=== PATIENT | male | born 1970 | race African-American/Black ===

== ENCOUNTER 2022-01-01 16:43 | Emergency (ER) | payer SELFPAY ==
--- OUTSIDE RECORDS SUMMARY | 2022-01-01 16:48 | XMS REPORT | Continuity of Care Document ---
:1970 Author Organization [facility] t Address [address] [place] [address] Care Team Providers Name Role Phone Jerry Hogue Primary Care Physician [phone] Miquel Bradshaw Attending Clinician Unavailable Manny Saxena Attending Clinician [phone] Lexy Rojo MD Attending Clinician MANNY HARRIS Attending Clinician Unavailable Unknown, Attending Attending Clinician Unavailable Nurse, Mars Urgent Attending Clinician Unavailable Eliseo Waldron Attending Clinician ELISEO MCDONALD Attending Clinician Unavailable Only, [facility] Test Attending Clinician Unavailable Cata Peña RN Attending Clinician Unavailable ARIEL SILVERMAN Attending Clinician Unavailable Ariel Silverman MD Attending Clinician JERRY ROMAN Attending Clinician Unavailable Jerry Hogue Attending Clinician Nurse, [facility] Attending Clinician Unavailable Luke Jernigan DO Attending Clinician Lab, [facility] Attending Clinician Unavailable Only, Mars Test Attending Clinician Unavailable Doctor Unassigned, [place] Attending Clinician Unavailable Payers Payer Name Policy Type Policy Number Effective Date Expiration Date S ource Problems Condition Condition Condition Status Onset Resolution Last Treating Co mments Source Name Details Category Date Date Treatment Clinician Date Obesity Obesity Disease Active 2016-05 Univers (BMI (BMI 0-16 ity of 30-39.9) 30-39.9) 00:00: [place] 00 [facility] Burn Burn Disease Active 2016-05 Univers 0-16 ity of 00:00: [address] Allergies, Adverse Reactions, Alerts Allergy Allergy Status Severity Reaction(s) Onset Inactive Treating Comm ents Source Name Type Date Date Clinician No Known [facility] 00:00: s 00 No Known DA Active U 2020-05 [facility] Drug 2-07 Allergie 00:00: s 00 No Known DA [facility] Allergie 00:00: s 00 NO KNOWN Drug Active Univers ALLERGIE Class ity of S [facility] Social History Social Habit Start Date Stop Date Quantity Comments Source Exposure to Unable to assess Univers ity of SARS-CoV-2 [facility] (event) [place] Alcohol intake 2021-05-26 2021-05-26 3.43 /d [place] of 00:00:00 00:00:00 [facility] Tobacco use and 2017-02-25 2017-02-25 Never used Universit y of exposure 00:00:00 00:00:00 [facility] Sex [birth year] Universit y of 00:00:00 00:00:00 [facility] Smoking Status Start Date Stop Date Source Former smoker 2017-02-25 00:00:00 2017-02-25 00:00[facility]00 [facility] Medications Ordered Filled Start Stop Current Ordering Indication Dosage Frequency Signature Comments Components Source Medication Medication Date Date Medication? Clinician (SIG) Name Name omeprazole 2021- No [id number] 40mg Take 1 Univers 40 mg 05-26 capsule by ity of capsule 00:00: 05:59 mouth [place] 00 :00 daily for Medical 30 days. Branch omeprazole 2021- No [id number] 40mg Take 1 Univers 40 mg 05-26 capsule by ity of capsule 00:00: 05:59 mouth [place] 00 :00 daily for Medical 30 days. Branch omeprazole 2021- No [id number] 40mg Take 1 Univers 40 mg 05-26 capsule by ity of capsule 00:00: 05:59 mouth [place] 00 :00 daily for Medical 30 days. Branch ondansetron 2021-0 2022- No [id number] 4mg Take 1 Univers (ZOFRAN 05-26 tablet by ity of ODT) 4 mg 00:00: 05:59 mouth [place] disintegrat 00 :00 every 24 Medi allison ing tablet ([facility] ur) hours as needed for Nausea and Vomiting (N/V) for up to 5 days. levoFLOXaci 2020-1 Yes 750mg Take 750 U nivers n 750 mg 2-15 mg by ity of tablet 00:00: mouth 00 daily. Medical Branch levoFLOXaci 2020-05 Yes 750mg Take 750 U nivers n 750 mg 2-15 mg by ity of tablet 00:00: mouth daily. Medical Branch levoFLOXaci 2020-1 Yes 750mg Take 750 U nivers n 750 mg 2-15 mg by ity of tablet 00:00: mouth daily. Medical Branch LISINOPRIL 2020-0 Yes [id number] 10mg TAKE 1 U nivers 10 mg 8-12 TABLET BY ity of tablet 00:00: MOUTH 00 DAILY Medical Branch AMLODIPINE 2020-0 Yes [id number] 10mg TAKE 1 U nivers 10 mg 8-12 TABLET BY ity of tablet 00:00: MOUTH DAILY Medical Branch LISINOPRIL 2020-0 Yes [id number] 10mg TAKE 1 U nivers 10 mg 8-12 TABLET BY ity of tablet 00:00: MOUTH DAILY Medical Branch AMLODIPINE 1-0 Yes [id number] 10mg TAKE 1 U nivers 10 mg 8-12 TABLET BY ity of tablet 00:00: MOUTH 00 DAILY Medical Branch LISINOPRIL 2020-0 Yes [id number] 10mg TAKE 1 U nivers 10 mg 8-12 TABLET BY ity of tablet 00:00: MOUTH 00 DAILY Medical Branch AMLODIPINE 1-0 Yes [id number] 10mg TAKE 1 U nivers 10 mg 8-12 TABLET BY ity of tablet 00:00: MOUTH 00 DAILY Medical Branch LISINOPRIL 1-0 Yes [id number] 10mg TAKE 1 U nivers 10 mg 8-12 TABLET BY ity of tablet 00:00: MOUTH [place] 00 DAILY Medical Branch AMLODIPINE 2021-0 Yes [id number] 10mg TAKE 1 U nivers 10 mg 8-12 TABLET BY ity of tablet 00:00: [facility] DAILY [facility] Branch LISINOPRIL 2021-0 Yes [id number] 10mg TAKE 1 U nivers 10 mg 8-12 TABLET BY ity of tablet 00:00: DAILY Medical Branch AMLODIPINE 2021-0 Yes [id number] 10mg TAKE 1 U nivers 10 mg 8-12 TABLET BY ity of tablet 00:00: [facility] DAILY [facility] Branch LISINOPRIL 2021-0 Yes [id number] 10mg TAKE 1 U nivers 10 mg 8-12 TABLET BY ity of tablet 00:00: [facility] DAILY [facility] Branch AMLODIPINE 2021-0 Yes [id number] 10mg TAKE 1 U nivers 10 mg 8-12 TABLET BY ity of tablet 00:00: [facility] DAILY Medical Branch LISINOPRIL 2021-0 Yes [id number] 10mg TAKE 1 U nivers 10 mg 8-12 TABLET BY ity of tablet 00:00: [facility] DAILY Medical Branch AMLODIPINE 2021-0 Yes [id number] 10mg TAKE 1 U nivers 10 mg 8-12 TABLET BY ity of tablet 00:00: [facility] DAILY [facility] Branch LISINOPRIL 2021-0 Yes [id number] 10mg TAKE 1 U nivers 10 mg 8-12 TABLET BY ity of tablet 00:00: [facility] DAILY [facility] Branch AMLODIPINE 2021-0 Yes [id number] 10mg TAKE 1 U nivers 10 mg 8-12 TABLET BY ity of tablet 00:00: [facility] DAILY Medical Branch LISINOPRIL 2021-0 Yes [id number] 10mg TAKE 1 U nivers 10 mg 8-12 TABLET BY ity of tablet 00:00: [facility] DAILY Medical Branch AMLODIPINE 2021-0 Yes [id number] 10mg TAKE 1 U nivers 10 mg 8-12 TABLET BY ity of tablet 00:00: [facility] DAILY Medical Branch LISINOPRIL 2021-0 Yes [id number] 10mg TAKE 1 U nivers 10 mg 8-12 TABLET BY ity of tablet 00:00: [facility] DAILY Medical Branch AMLODIPINE 2021-0 Yes [id number] 10mg TAKE 1 U nivers 10 mg 8-12 TABLET BY ity of tablet 00:00: MOUTH [place] 00 DAILY Medical Branch LISINOPRIL 0 Yes [id number] 10mg TAKE 1 U nivers 10 mg 8-12 TABLET BY ity of tablet 00:00: MOUTH [place] 00 DAILY Medical Branch AMLODIPINE 2020-0 Yes [id number] 10mg TAKE 1 U nivers 10 mg 8-12 TABLET BY ity of tablet 00:00: MOUTH [place] 00 DAILY Medical Branch amLODIPine 2020-0 Yes [id number] 10mg Take 1 U nivers 10 mg 2-11 tablet by ity of tablet 00:00: mouth [place] 00 daily. Medical Branch lisinopriL Yes [id number] 10mg Take 1 U nivers 10 mg 2-11 tablet by ity of tablet 00:00: mouth [place] 00 daily. Medical Branch amLODIPine 2020-0 2020- No [id number] 10mg Take 1 Univers 10 mg 2-11 08-12 tablet by ity of tablet 00:00: 00:00 mouth [place] 00 :00 daily. Medical Branch lisinopriL 2020- No [id number] 10mg Take 1 Univers 10 mg 2-11 08-12 tablet by ity of tablet 00:00: 00:00 mouth [place] 00 :00 daily. Medical Branch lisinopriL 2019-05 2020- No 10mg Take 10 mg Univers 10 mg 1-13 11-13 by mouth ity of tablet 19:28: 00:00 daily. [place] 29 :00 Medical Branch lisinopriL 2019- 2020- No 10mg Take 10 mg Univers 10 mg 1-13 11-13 by mouth ity of tablet 19:28: 00:00 daily. [place] 29 :00 Medical Branch amLODIPine 2019- Yes [id number] 10mg Take 1 U nivers 10 mg 1-13 tablet by ity of tablet 00:00: mouth [place] 00 daily. Medical Branch lisinopriL 2019- Yes [id number] 10mg Take 1 U nivers 10 mg 1-13 tablet by ity of tablet 00:00: mouth [place] 00 daily. Medical Branch amLODIPine 2019-05 Yes [id number] 10mg Take 1 U nivers 10 mg 1-13 tablet by ity of tablet 00:00: mouth [place] 00 daily. Medical Branch lisinopriL 2019-05 Yes [id number] 10mg Take 1 U nivers 10 mg 1-13 tablet by ity of tablet 00:00: mouth [place] 00 daily. Medical Branch amLODIPine 2019-05 Yes [id number] 10mg Take 1 U nivers 10 mg 1-13 tablet by ity of tablet 00:00: mouth [place] 00 daily. Medical Branch lisinopriL 2019-05 Yes [id number] 10mg Take 1 U nivers 10 mg 1-13 tablet by ity of tablet 00:00: mouth [place] 00 daily. Medical Branch amLODIPine 2019-05 Yes [id number] 10mg Take 1 U nivers 10 mg 1-13 tablet by ity of tablet 00:00: mouth [place] 00 daily. Medical Branch lisinopriL 2019-05 Yes [id number] 10mg Take 1 U nivers 10 mg 1-13 tablet by ity of tablet 00:00: mouth [place] 00 daily. Medical Branch amLODIPine 2019-05 Yes [id number] 10mg Take 1 U nivers 10 mg 1-13 tablet by ity of tablet 00:00: mouth [place] 00 daily. Medical Branch lisinopriL 2019-05 Yes [id number] 10mg Take 1 U nivers 10 mg 1-13 tablet by ity of tablet 00:00: mouth [place] 00 daily. Medical Branch amLODIPine 2019-05 Yes [id number] 10mg Take 1 U nivers 10 mg 1-13 tablet by ity of tablet 00:00: mouth [place] 00 daily. Medical Branch lisinopriL 2019-05 Yes [id number] 10mg Take 1 U nivers 10 mg 1-13 tablet by ity of tablet 00:00: mouth [place] 00 daily. Medical Branch amLODIPine 2019-05- No [id number] 10mg Take 1 Univers 10 mg 1-13 02-11 tablet by ity of tablet 00:00: 00:00 mouth [place] 00 :00 daily. Medical Branch lisinopriL 2019-05- No [id number] 10mg Take 1 Univers 10 mg 1-13 02-11 tablet by ity of tablet 00:00: 00:00 mouth [place] 00 :00 daily. Medical Branch amLODIPine 2016-05 Yes 10mg Take 1 Unive rs 10 mg 0-27 tablet by ity of tablet 00:00: mouth [place] 00 daily. Medical Branch amLODIPine 2016-05 2020- No 10mg Take 1 Univ ers 10 mg 0-27 11-13 tablet by ity of tablet 00:00: 00:00 mouth [place] 00 :00 daily. Medical Branch amLODIPine 2016-05 2020- No 10mg Take 1 Univ ers 10 mg 0-27 11-13 tablet by ity of tablet 00:00: 00:00 mouth [place] 00 :00 daily. Medical Branch hydrochloro 2016-05 Yes 25mg Take 2.5 Un gracy thiazide 0-19 mL by ity of (ESIDRIX) 00:00: mouth [place] 10 mg/mL 00 every Medical oral morning. Branch suspension ascorbic 2016-05 Yes 300mg Take 3 mL Uni vers acid 0-19 by mouth ity of (VITAMIN C) 00:00: [place]. [place] mg/mL 00 Medical oral Branch solution ZINC 2016-05 Yes 220mg Take 1 Univers SULFATE 220 0-19 capsule by it y of (50) mg 00:00: mouth 3 [place] capsule 00 (three) Medical times Branch daily. hydrochloro 2016-05 2020- No 25mg Take 2.5 U nivers thiazide 0-19 11-13 mL by ity of (ESIDRIX) 00:00: 00:00 mouth [place] 10 mg/mL 00 :00 every Medical oral morning. Branch suspension ascorbic 2016-05 2020- No 300mg Take 3 mL Un gracy acid 0-19 11-13 by mouth ity of (VITAMIN C) 00:00: 00:00 daily. [place] as 100 mg/mL 00 :00 Medical oral Branch solution ZINC 2016-05 2020- No 220mg Take 1 Univers SULFATE 220 0-19 11-13 capsule by i ty of (50) mg 00:00: 00:00 mouth 3 [place] capsule 00 :00 (three) Medical times Branch daily. hydrochloro 2016-05 2020- No 25mg Take 2.5 U nivers thiazide 0-19 11-13 mL by ity of (ESIDRIX) 00:00: 00:00 mouth [place] 10 mg/mL 00 :00 every Medical oral morning. Branch suspension ascorbic 2016-05 2020- No 300mg Take 3 mL Un gracy acid 0-19 11-13 by mouth ity of (VITAMIN C) 00:00: 00:00 daily. [place] as 100 mg/mL 00 :00 Medical oral Branch solution ZINC 2016-05 2020- No 220mg Take 1 Univers SULFATE 220 0-19 11-13 capsule by i ty of (50) mg 00:00: 00:00 mouth 3 [place] capsule 00 :00 (three) Medical times Branch daily. No known No Univers medications ity of [facility] No known No Univers medications it of [facility] Immunizations Ordered Filled Immunization Date Status Comments [facility] e Immunization Name Name Rachel CLIFTONIDLilibeth Ramos COVID-19 2021-03-06 Completed Vaccine Vaccine 00:00:00 Rachel COVID-19 Rachel COVID-19 2020-12-12 Completed Vaccine Vaccine 00:00:00 Zoster Vaccine 2020-04-01 Completed University of Recombinant 00:00:00 [facility] Zoster Vaccine 2020-04-01 Completed University of Recombinant 00:00:00 [facility] Zoster Vaccine 2020-04-01 Completed University of Recombinant 00:00:00 [facility] Zoster Vaccine 2020-04-01 Completed University of Recombinant 00:00:00 [facility] Zoster Vaccine 2020-04-01 Completed University of Recombinant 00:00:00 [facility] Zoster Vaccine 2020-04-01 Completed University of Recombinant 00:00:00 [facility] Zoster Vaccine 2020-04-01 Completed University of Recombinant 00:00:00 [facility] Zoster Vaccine 2020-04-01 Completed University of Recombinant 00:00:00 [facility] Zoster Vaccine 2020-04-01 Completed University of Recombinant 00:00:00 [facility] Zoster Vaccine 2020-04-01 Completed University of Recombinant 00:00:00 [facility] Zoster Vaccine 2020-04-01 Completed University of Recombinant 00:00:00 [facility] Zoster Vaccine 2020-04-01 Completed University of Recombinant 00:00:00 [facility] Zoster Vaccine 2020-04-01 Completed University of Recombinant 00:00:00 [facility] Zoster Vaccine 2020-04-01 Completed University of Recombinant 00:00:00 [facility] Influenza Virus 2020-03-25 Completed Universit y of Vaccine Quad .5 mL 00:00:00 [facility] IM 6+ MO Branch Influenza Virus 2020-03-25 Completed Universit y of Vaccine [place] .5 mL 00:00:00 [place] [facility] IM 6+ MO Branch Influenza Virus 2020-03-25 Completed Universit y of Vaccine Quad .5 mL 00:00:00 [facility] [place] [facility] IM 6+ MO Branch Influenza Virus 2020-03-25 Completed Universit y of Vaccine [place] .5 mL 00:00:00 [facility] [place] [facility] IM 6+ MO Branch Influenza Virus 2020-03-25 Completed Universit y of Vaccine [place] .5 mL 00:00:00 [facility] [place] [facility] IM 6+ MO Branch Influenza Virus 2020-03-25 Completed Universit y of Vaccine [place] .5 mL 00:00:00 [place] [facility] IM 6+ MO Branch Influenza Virus 2020-03-25 Completed Universit y of Vaccine [place] .5 mL 00:00:00 [place] [facility] IM 6+ MO Branch Influenza Virus 2020-03-25 Completed Universit y of Vaccine [place] .5 mL 00:00:00 [place] [facility] IM 6+ MO Branch Influenza Virus 2020-03-25 Completed Universit y of Vaccine [place] .5 mL 00:00:00 [place] [facility] IM 6+ MO Branch Influenza Virus 2020-03-25 Completed Universit y of Vaccine [place] .5 mL 00:00:00 [place] [facility] IM 6+ MO Branch Influenza Virus 2020-03-25 Completed Universit y of Vaccine [place] .5 mL 00:00:00 [place] [facility] IM 6+ MO Branch Influenza Virus 2020-03-25 Completed Universit y of Vaccine [place] .5 mL 00:00:00 [place] [facility] IM 6+ MO Branch Influenza Virus 2020-03-25 Completed Universit y of Vaccine [place] .5 mL 00:00:00 [place] [facility] IM 6+ MO Branch Influenza Virus 2020-03-25 Completed Universit y of Vaccine [place] .5 mL 00:00:00 [place] [facility] IM 6+ MO Branch Influenza Virus 2020-03-25 Completed Universit y of Vaccine [place] .5 mL 00:00:00 [place] [facility] IM 6+ MO Branch Influenza Virus 2020-03-25 Completed Universit y of Vaccine [place] .5 mL 00:00:00 [place] [facility] IM 6+ MO Branch Influenza Virus 2020-03-25 Completed Universit y of Vaccine [place] .5 mL 00:00:00 [place] [facility] IM 6+ MO Branch Influenza Virus 2020-03-25 Completed Universit y of Vaccine [place] .5 mL 00:00:00 [place] [facility] IM 6+ MO Branch TDAP 2017-02-10 Completed University of 00:00:00 [facility] TDAP 2017-02-10 Completed University of 00:00:00 [facility] TDAP 2017-02-10 Completed University of 00:00:00 [facility] TDAP 2017-02-10 Completed University of 00:00:00 [facility] TDAP 2017-02-10 Completed University of 00:00:00 [facility] TDAP 2017-02-10 Completed University of 00:00:00 [facility] TDAP 2017-02-10 Completed University of 00:00:00 [facility] TDAP 2017-02-10 Completed University of 00:00:00 [place] [facility] TDAP 2017-02-10 Completed University of 00:00:00 [place] [facility] TDAP 2017-02-10 Completed University of 00:00:00 [place] [facility] TDAP 2017-02-10 Completed University of 00:00:00 [place] [facility] TDAP 2017-02-10 Completed University of 00:00:00 [place] [facility] TDAP 2017-02-10 Completed University of 00:00:00 [place] [facility] TDAP 2017-02-10 Completed University of 00:00:00 [place] [facility] TDAP 2017-02-10 Completed University of 00:00:00 [place] [facility] TDAP 2017-02-10 Completed University of 00:00:00 [place] [facility] TDAP 2017-02-10 Completed University of 00:00:00 [place] [facility] TDAP 2017-02-10 Completed University of 00:00:00 [place] [facility] TDAP 2017-02-10 Completed University of 00:00:00 [place] [facility] TDAP 2017-02-10 Completed University of 00:00:00 [facility] Vital Signs Vital Name Observation Time Observation Value Comments Source Systolic blood 2021-05-26 15:50:00 104 mm[Hg] Univer sity of pressure [facility] Diastolic blood 2021-05-26 15:50:00 71 mm[Hg] Unive rsity of pressure [facility] Heart rate 2021-05-26 15:50:00 97 /min [facility] Body temperature 2021-05-26 15:50:00 36.83 Padmaja [facility] Respiratory rate 2021-05-26 15:50:00 18 /min [facility] [place] [facility] Oxygen saturation in 2021-05-26 15:50:00 99 /min University Arterial blood by [facility] Pulse oximetry Branch Systolic blood 2021-04-23 18:25:00 129 mm[Hg] Univer sity of pressure [facility] Diastolic blood 2021-04-23 18:25:00 72 mm[Hg] Unive rsity of pressure [facility] Heart rate 2021-04-23 18:25:00 102 /[facility] 2021-04-23 18:25:00 36.61 [facility]ja [facility] rate 2021-04-23 18:25:00 20 /min [facility] Oxygen saturation in 2021-04-23 18:25:00 100 /min University of Arterial blood by [facility] Pulse oximetry Branch Systolic blood 2020-03-25 19:07:00 150 mm[Hg] Univer sity of pressure [facility] Diastolic blood 2020-03-25 19:07:00 100 mm[Hg] Unive rsity of pressure [facility] Heart rate 2020-03-25 19:07:00 85 /min [facility] Respiratory rate 2020-03-25 18:56:00 15 /min [facility] Body height 2020-03-25 18:56:00 182.9 cm [facility] Body weight 2020-03-25 18:56:00 95.573 kg [facility] BMI 2020-03-25 18:56:00 28.58 kg/m2 [facility] Oxygen saturation in 2020-03-25 18:56:00 98 /min [place] of Arterial blood by [facility] Pulse oximetry Branch Procedures Procedure Date / Time Performed Performing Clinician [facility] e VARICELLA-ZOSTER 2020-04-01 21:40:31 Jerry Roman [facility] VACCINE, (SHINGRIX) 50 Medical B ranch MCG/0.5 ML, IM COVID-19 (MOLECULAR 2020-03-25 20:26:00 Jerry Roman [facility] NUCLEIC ACID AMPLIFICATION) FLU VACC ([id number]), 2020-03-25 19:06:36 Jerry Roman Uni versity of [place] 6+ MONTHS, IM, QUAD Medical Bran ch ASSIGNMENT OF BENEFITS 2020-03-25 18:45:49 Doctor Unassigned, No [facility] Encounters Start End Encounter Admission Attending Care Care Encounter Source Date/Time Date/Time Type Type Clinicians Facility Department ID 2021-04-21 Inpatient Miquel Bradshaw [facility] [id number] [facility] 16:00:00 32 2021-06-22 2021-06-22 DASHA Maxwell [id number] Univers 00:00:00 00:00:00 Manny Little [facility] [id number] ity of [place] [id number] [facility] [phone] Medi allison PRIMARY & 370 Branch SPECIALTY CARE 2021-06-18 2021-06-18 Refantonio Rojo [facility] [id number] Univers 00:00:00 00:00:00 , Lexy [facility] [id number] ity of [place] [id number] [facility] [phone] Medi allison PRIMARY & 365 Branch SPECIALTY CARE 2021-05-26 2021-05-26 Outpatient R EDYTA [facility] [id number] Univers 09:15:00 10:12:11 KENNIKQUA ity [facility] 2021-05-26 2021-05-26 Urgent Manny Harris [facility] [id number] Univers 09:15:00 10:12:11 Care Unknown, Attending HEALTH [id number] ity of [place] [id number] [facility] [phone] Medi allison PRIMARY & 370 Branch SPECIALTY CARE 2021-05-26 2021-05-26 Outpatient R [facility] [id number] Univers 09:15:00 09:15:00 [id number] ity [facility] 2021-04-24 2021-04-24 Outpatient Elective Miquel Bradshaw [facility] JM [id number] [facility] 14:24:00 18:30:00 90 2021-04-23 2021-04-23 Nurse Nurse, Mars Ocampo [facility] [id number] Univers 11:52:33 14:14:25 Visit Unknown, Attending HEALTH [id number] ity of Eliseo Mcdonald [id number] [place] [phone] Medi allison PRIMARY & 370 Branch SPECIALTY CARE 2021-04-23 2021-04-23 Outpatient R [facility] [id number] Univers 13:00:00 13:00:00 [id number] ity [facility] 2021-04-23 2021-04-23 [facility] [id number] Univers 13:00:00 13:00:00 ELISEO ity [facility] 2021-04-18 2021-04-18 Outpatient Urgent Miquel Bradshaw [facility] [id number] [facility] 15:16:00 18:10:00 12 2021-04-15 2021-04-15 Outpatient Elective Miquel Bradshaw [facility] JM [id number] [facility] 12:34:00 12:34:00 54 2021-03-06 2021-03-06 Outpatient GCCOVIDV GCCOVIDV [id number] GCCOVID 00:00:00 00:00:00 V 2021 2021 Telephone Only, Mars [facility] [id number] Univers 00:00:00 00:00:00 Uc Test HEALTH [id number] it y of [place] [id number] [facility] [phone] [facility] Primary & 370 Branch Specialty Care 2020-12-31 2020-12-31 Telephone CARMELO Peña [id number] Univers 00:00:00 00:00:00 Cata GARIBAY [id number] it y of [facility] [id number] [facility] [phone] [address] 2020-12-30 2020-12-30 Outpatient R HERRERA [facility] [id number] Univers 09:45:00 11:09:41 ARIEL ity [facility] 2020-12-30 2020-12-30 Outpatient R [facility] [id number] Univers 09:45:00 09:45:00 [id number] ity [facility] 2020-12-30 2020-12-30 Laboratory Only, Mars Uc Test [facility] [id number] Univers 09:12:34 09:27:34 Only Unknown, Attending HEALTH [id number] ity Ariel Silverman [place] [id number] [place] [phone] [facility] Primary & 370 Branch Specialty Care 2020-12-22 2020-12-22 Refantonio Rojo [facility] [id number] Univers 00:00:00 00:00:00 , [facility] [id number] ity of [place] [id number] [facility] [phone] [facility] Primary & 365 Branch Specialty Care 2020-12-22 2020-12-22 Refill [facility] [id number] Univers 00:00:00 00:00:00 , [facility] [id number] ity of [place] [id number] [facility] [phone] [facility] Primary & 365 Branch Specialty Care 2020-12-12 2020-12-12 Outpatient GCCOVIDV GCCOVIDV [id number] [facility] 00:00:00 00:00:00 V 2020-06-27 2020-06-27 [id number] Univers 10:00:00 10:00:00 [facility] [id number] [facility] 2020-06-27 2020-06-27 Outpatient R [facility] [id number] Univers 10:00:00 10:00:00 [facility] 2020-06-23 2020-06-23 [facility] [id number] Univers 00:00:00 00:00:00 [facility] [id number] it [place] of [place] [id number] [facility] [phone] [facility] 2020-06-01 2020-06-01 Outpatient R [facility] [id number] Univers 15:30:00 15:30:00 [id number] ity [facility] 2020-06-01 2020-06-01 Outpatient R [facility] [id number] Univers 15:30:00 15:30:00 [facility] 2020-04-01 2020-04-01 Nurse Nurse, Psychiatric [id number] Univers 15:26:10 15:48:15 [facility] [id number] [place] [id number] [facility] [phone] [facility] 2020-04-01 2020-04-01 Outpatient R [facility] [id number] Univers 15:30:00 15:30:00 [id number] ity [facility] 2020-04-01 2020-04-01 Outpatient R [facility] [id number] Univers 15:30:00 15:30:00 [facility] ity [facility] 2020-04-01 2020-04-01 Letter Rere [facility] [id number] Univers 00:00:00 00:00:00 (Out) Luke Najera ICAAlesia [id number] ity of [facility] 4.2.7.2.686 [place] as BLDG [id number] [facility] Branch 2020-03-26 2020-03-26 Letter Nurse, [facility] [id number] Univers 00:00:00 00:00:00 (Out) [facility] [id number] it [place] of [place] [id number] [facility] [phone] [facility] 2020-03-25 2020-03-25 Outpatient [facility] [id number] Univers 15:00:00 15:00:00 [facility] [id number] 2020-03-25 2020-03-25 Outpatient R HERRERA [facility] [id number] Univers 14:45:00 14:45:00 ARIEL ity [facility] 2020-03-25 2020-03-25 Music Assistant Lab, Psychiatric [id number] Univers 13:46:18 14:01:18 Visit Abel [facility] [id number] ity [facility] [id number] [facility] [id number] [facility] 2020-03-25 2020-03-25 [facility] [id number] Univers 12:48:37 13:44:44 [facility] [id number] [facility] [place] of [place] [id number] [facility] [phone] [facility] 2020-03-25 2020-03-25 Laboratory Only, Mars Test [facility] 1.2.840. [id number] [facility] 12:48:46 13:03:46 Only HerreraAriel [facility] [id number] ity of [place] [id number] [facility] [id number] [facility] 2020-03-25 2020-03-25 Orders Doctor CARMELO [id number] 00:00:00 00:00:00 Only Unassigned, LANI [id number] ity of [place] [facility] [id number] [facility] [phone] [place] [address] Branch Results Test Description Test Time Test Comments Results Result Comments Source COVID-19 (MOLECULAR TESTING 2020-03-26 07:39:00 NUCLEIC ACID AMPLIFICATION) Test Item Value Reference Range Interpretation Comme nts SARS-CoV-2 NAAT (test code = Not Detected Not Detected 72599-8) JASKARAN (test code = JASKARAN) [employer] SARS-CoV-2 Assay is a nucleic acid amplification test intended for the qualitative detection of RNA from SARS-CoV-2 from nasopharyngeal (ACQUISITION MANAGER) specimens. ?It is used under Emergency Use Authorization (EUA) by FDA. A positive result is indicative of the presence of SARS-CoV-2 RNA. ?Clinical correlation with patient history and other diagnostic information is necessary to determine patient infection status. A negative (Not Detected) result does not preclude SARS-CoV-2 infection. ?Clinical correlation with patient history and other diagnostic information should be used in patient management decisions. Invalid: Unable to generate a valid test result on this specimen. ?Please submit a new specimen for repeat testing if clinically indicated. Lab Interpretation (test code = Normal 22458-5) [facility]
--- NOTE | 2022-01-01 16:51 | ER ---
Nurse's Notes [facility] Name: Drake Garcia Age: 51 yrs Sex: Male : 1970 Arrival Date: 01/01/2022 Time: 16:48 Bed 5 Private MD: Diagnosis: Laceration without foreign body of lip Presentation: 01/01 16:48 Chief complaint: Patient states: using a wrench to tighten a bolt and wrench slipped jh6 hitting pt in upper lip. pt has 2cm lac to l upper lip. 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 Coronavirus screen: Vaccine status: Patient reports receiving the 2nd dose of the covid vaccine. Ebola Screen: Patient negative for fever greater than or equal to 101.5 degrees Fahrenheit, and additional compatible Ebola Virus Disease symptoms Patient denies exposure to infectious person. Patient denies travel to an Ebola-affected area in the 21 days before illness onset. Initial Sepsis Screen: Does the patient meet any 2 criteria? No. Patient's initial sepsis screen is negative. Does the patient have a suspected source of infection? No. Patient's initial sepsis screen is negative. Risk Assessment: Do you want to hurt yourself or someone else? Patient reports no desire to harm self or others. Onset of symptoms was January 01, 2022. 16:48 Method Of Arrival: EMS: [place] [address] 16:48 Acuity: EDMOND 4 jh6 Triage Assessment: 16:51 General: Appears in no apparent distress. Behavior is calm, cooperative. Pain: [facility] Complains of pain in upper vermilion border and upper lip Pain currently is 3 out of 10 on a pain scale. Quality of pain is described as aching. Historical: - Allergies: 16:50 No Known Allergies; [facility] - Home Meds: 16:50 lisinopril 1 mg/mL Oral soln 10 mL once daily [Active]; [facility] - PMHx: 16:50 Hypertensive disorder; [facility] - Immunization history:: Adult Immunizations up to date. - Social history:: Smoking status: Patient denies any tobacco usage or history of. Screenin:52 Abuse screen: Denies threats or abuse. Denies injuries from another. Nutritional [facility] screening: No deficits noted. Tuberculosis screening: No symptoms or risk factors identified. Fall Risk None identified. Assessment: 16:52 General: Appears see triage note. pt is stating that he is not wanting stitches placed jh6 here in the er, that he would like to go to company today. Vital Signs: 16:48 BP 182 / 106; Pulse 82; Resp 17; Temp 98.0(O); Pulse Ox 98% ; Weight 95.25 kg; Height 6 jh6 ft. 0 in. (182.88 cm); Pain 3/10; 16:48 Body Mass Index 28.48 (95.25 kg, 182.88 cm) 6 ED Course: 16:48 Patient arrived in ED. 6 16:48 Alona Nye, RN is Primary Nurse. 6 16:50 Triage completed. 6 16:50 Millicent Buchanan [facility]-C [facility] kb 16:50 Casimiro Hurst MD is Attending Physician. kb 16:50 Bed in low position. Call light in reach. jh6 16:51 Arm band placed on right wrist. Patient placed in the treatment room, on a stretcher. jh6 16:53 No provider procedures requiring assistance completed. jh6 16:54 Patient did not have IV access during this emergency room visit. 6 Administered Medications: No medications were administered Medication: 16:54 VIS not applicable for this client. 6 Outcome: 16:51 Discharge ordered by . kb 16:53 Discharged to home ambulatory. jh6 16:53 Condition: good 16:53 Discharge instructions given to patient, pts company field marketing representative. Instructed on discharge instructions, Demonstrated understanding of instructions, follow-up care. 16:54 Patient left the ED. [facility] Signatures: Millicent Buchanan FNP-C FNP-Ckb Hastedt, Jennifer, RN RN [facility]
--- NOTE | 2022-01-01 16:51 | EDPHYS ---
Physician Documentation [facility] Name: Drake Garcia Age: 51 yrs Sex: Male : 1970 Arrival Date: 01/01/2022 Time: 16:48 Bed 5 Private MD: ED Physician Casimiro Hurst HPI: 01/01 17:37 This 51 yrs old Black Male presents to ER via EMS with complaints of laceration . kb 17:37 The patient has a laceration related to: working, wrench slipped and hit pt in mouth kb causing laceration to upper lip. The laceration(s) is(are) located on the upper lip and upper vermilion border. Onset: The symptoms/episode began/occurred today. Associated signs and symptoms: The patient has no apparent associated signs or symptoms. The patient has not experienced similar symptoms in the past. The patient has not recently seen a physician. Historical: - Allergies: 16:50 No Known Allergies; [facility] - Home Meds: 16:50 lisinopril 1 mg/mL Oral soln 10 mL once daily [Active]; [facility] - PMHx: 16:50 Hypertensive disorder; [facility] - Immunization history:: Adult Immunizations up to date. - Social history:: Smoking status: Patient denies any tobacco usage or history of. ROS: 17:36 Constitutional: Negative for fever, chills, and weight loss. kb 17:36 Skin: Positive for laceration(s), of the upper lip and upper vermilion border. 17:36 All other systems are negative. Exam: 17:36 Constitutional: This is a well developed, well nourished patient who is awake, alert, kb and in no acute distress. ENT: Moist Mucous membranes Cardiovascular: Regular rate and rhythm with a normal S1 and S2. No gallops, murmurs, or rubs. No pulse deficits. Respiratory: Respirations even and unlabored. No increased work of breathing. Talking in full sentences MS/ Extremity: Pulses equal, no cyanosis. Neurovascular intact. Full, normal range of motion. Neuro: Awake and alert, GCS 15, oriented to person, place, time, and situation. Moves all extremities. Normal gait. Psych: Awake, alert, with orientation to person, place and time. Behavior, mood, and affect are within normal limits. 17:36 Head/face: Noted is no obvious of injury or deformity except a laceration(s), of the upper lip and upper vermilion border. 17:36 Skin: injury, laceration(s), the wound is approximately 2.5 cm(s), of the upper vermilion border and upper lip, that can be described as clean, no foreign body, linear, with mild bleeding. Vital Signs: 16:48 BP 182 / 106; Pulse 82; Resp 17; Temp 98.0(O); Pulse Ox 98% ; Weight 95.25 kg; Height 6 jh6 ft. 0 in. (182.88 cm); Pain 3/10; 16:48 Body Mass Index 28.48 (95.25 kg, 182.88 cm) jh6 MDM: 16:51 Patient medically screened. kb 17:35 Data reviewed: vital signs, nurses notes. Data interpreted: Pulse oximetry: on room air kb is 98 %. Interpretation: normal. Counseling: I had a detailed discussion with the patient and/or guardian regarding: the historical points, exam findings, and any diagnostic results supporting the discharge/admit diagnosis, the need for outpatient follow up, a family practitioner, to return to the emergency department if symptoms worsen or persist or if there are any questions or concerns that arise at home. 17:38 ED course: Pt does not want sutures placed here. States he wants to go see his company [employer] Pt is going to see him upon discharge from ER. . Administered Medications: No medications were administered Disposition: 17:42 Co-signature as Attending Physician, Casimiro Hurst MD. rn Disposition Summary: 01/01/22 16:51 Discharge Ordered Location: Home kb Condition: Stable kb Diagnosis - Laceration without foreign body of lip kb Followup: kb - With: Emergency Department - When: As needed - Reason: Worsening of condition Followup: kb - With: Private Physician - When: 2 - 3 days - Reason: Recheck today's complaints, Continuance of care, Re-evaluation by your physician Discharge Instructions: - Discharge Summary Sheet kb - Mouth Laceration, [id number]-Ohdh kb - Laceration Care, Adult, [id number] kb Forms: - Medication Reconciliation Form kb - Thank You Letter kb - Antibiotic Education kb - Prescription Opioid Use kb Signatures: Millicent Buchanan, THONG-Myra BENITO-Casimiro Lainez MD MD rn Alona Nye, MAURIILO RN jh6
[2022-01-01 18:13] VITALS: BP 182/106; TEMP 98; O2SAT 98
== END 2022-01-01 16:54 | disposition home or self-care (01) ==
LOC: ER 16:43
DX: S01.511A Laceration without foreign body of lip, initial encounter (principal); I10 Essential (primary) hypertension
CPT/HCPCS: 99283